=== PATIENT | male | born 1975 | race Caucasian/White ===

== ENCOUNTER 2021-03-20 09:35 | Emergency (ER) | payer OTHER ==
[~2021-03-20] VITALS: Ht 170.2 cm; Wt 83.9 kg
[2021-03-20 09:42] VITALS: BP 135/87
== END 2021-03-20 10:31 | disposition home or self-care (01) ==
LOC: ER 09:35
DX: K04.7 Periapical abscess without sinus (principal); J45.909 Unspecified asthma, uncomplicated; F17.210 Nicotine dependence, cigarettes, uncomplicated; Z76.0 Encounter for issue of repeat prescription

== ENCOUNTER 2023-09-04 00:34 | Emergency (ER) | payer OTHER ==
[~2023-09-04] VITALS: Ht 177.8 cm; Wt 58.8 kg
[2023-09-04 01:00] VITALS: PULSE 80; RESP 18; O2SAT 98
[2023-09-04 01:18] LABS: Basophils # (auto) 0.1 10 ^3/uL (0-0.2); Basophils % (auto) 1.2 % (0.0-2.0); Eosinophils # (auto) 0.1 10 ^3/uL (0-0.8); Eosinophils % (auto) 2.1 % (0.0-7.0); Hematocrit 39.4 % (41.0-53.0); Hemoglobin 13.4 g/dL (13.5-17.5); Lymphocytes # (auto) 1.7 10 ^3/uL (0.4-5.4); Lymphocytes % (auto) 24.5 % (10.0-50.0); Mean Corpuscular Hemoglobin 30.1 pg (28.0-32.0); Mean Corpuscular Hgb Conc. 34.1 g/dL (32.0-36.0); Mean Corpuscular Volume 88.3 fL (80.0-100.0); Monocytes # (auto) 0.4 10 ^3/uL (0-1.3); Monocytes % (auto) 5.2 % (0.0-12.0); Neutrophils # (auto) 4.8 10 ^3/uL (1.6-8.6); Red Blood Cells 4.46 10^6/uL (4.5-5.90); Red Cell Distribution Width 13.5 % (11.8-14.3); White Blood Cell 7.1 10^3/uL (4.4-10.8)
[2023-09-04 01:30] LABS: Acetaminophen < 2.0 UG/ML (10.0-20.0); Alanine Aminotransferase 72 U/L (7-40); Albumin 4.3 g/dL (3.2-4.8); Alkaline Phosphatase 35 U/L (46-116); Anion Gap 4 (5-15); Aspartate Aminotransferase 66 U/L (13-40); BUN/Creatinine Ratio 27.7 (10.0-20.0); Blood Alcohol < 3.0 mg/dL (<10); Blood Urea Nitrogen 23 mg/dL (9-23); Calcium 9.3 mg/dL (8.7-10.4); Carbon Dioxide 28 mmol/L (20-30); Chloride 109 mmol/L (98-107); Glucose 107 mg/dL (74-106); Potassium 3.8 mmol/L (3.5-5.1); Sodium 141 mmol/L (136-145)
[2023-09-04 01:31] LABS: Bilirubin, Total 0.5 mg/dL (0.2-1.0); Total Protein 6.5 g/dL (5.7-8.2)
[2023-09-04 01:36] LABS: Salicylate < 3.0 mg/dL (2.8-20.0)
[2023-09-04 01:56] LABS: Urine Bacteria NONE SEEN /hpf (None Seen); Urine Blood Negative /uL (Negative); Urine Clarity Clear (Clear); Urine Color Yellow (Yellow); Urine Protein, UAD TRACE (Negative); Urine WBC <1 /hpf (0 - 3)
[2023-09-04 02:01] LABS: Amphetamine Screen, Urine Neg (NEGATIVE); Barbiturate Scree,Urine Neg (NEGATIVE); Benzodiazephine Screen, Urine Neg (NEGATIVE); Cocaine Screen, Urine Neg (NEGATIVE)
[2023-09-04 02:02] LABS: Cannabinoid Screen, Urine Pos (NEGATIVE); Opiate Scree,Urine Neg (NEGATIVE); Phencyclidine Screen, Urine Neg (NEGATIVE)
[2023-09-04] MEDS: hydrOXYzine 25 MG TAB or CAP PO PRN (15:06)
[2023-09-04] MEDS ORDERED: ASPirin 81 mg TAB ONE (15:59)
[2023-09-04] MEDS ORDERED: ATORVASTATIN 20 MG TAB ONE (15:59)
[2023-09-04] MEDS: ATORVASTATIN 20 MG TAB PO SCH (16:07)
[2023-09-04] MEDS: QUEtiapine FUMARATE 25 MG TAB PO SCH (21:24)
[2023-09-04] MEDS ORDERED: ATORVASTATIN 20 MG TAB PO SCH (22:00)
[2023-09-04] MEDS ORDERED: LORazepam 0.5 MG TAB PO ONE (23:30)
[2023-09-05 07:21] VITALS: PULSE 94; RESP 18; O2SAT 95
[2023-09-05] MEDS: ASPirin-EC 81 mg tab PO SCH (10:05)
[2023-09-05] MEDS: hydrOXYzine 25 MG TAB or CAP PO PRN ×2 (10:05→17:51)
[2023-09-05] MEDS ORDERED: LORazepam 0.5 MG TAB PO ONE (10:15)
[2023-09-05] MEDS: ATORVASTATIN 20 MG TAB PO SCH (17:51)
[2023-09-05] MEDS: QUEtiapine FUMARATE 25 MG TAB PO SCH (23:20)
[2023-09-06] MEDS: ASPirin-EC 81 mg tab PO SCH (15:44)
[2023-09-06] MEDS: ATORVASTATIN 20 MG TAB PO SCH (15:44)
[2023-09-06 19:20] VITALS: RESP 16; O2SAT 98
[2023-09-06] MEDS: hydrOXYzine 25 MG TAB or CAP PO PRN (20:16)
[2023-09-06] MEDS: QUEtiapine FUMARATE 25 MG TAB PO SCH (21:43)
[2023-09-07] MEDS ORDERED: IBUPROFEN 600 MG TAB PO PRN (03:45)
[2023-09-07] MEDS ORDERED: LORazepam 2MG/ML-1ML VIAL IM ONE (03:45)
[2023-09-07 07:34] VITALS: BP 127/97; TEMP 97.9
[2023-09-07 07:35] VITALS: PULSE 67; RESP 16; O2SAT 98
[2023-09-07 09:00] VITALS: RESP 16; O2SAT 98
[2023-09-07] MEDS: ASPirin-EC 81 mg tab PO SCH (10:42)
[2023-09-07] MEDS ORDERED: hydrOXYzine 25 MG TAB or CAP PO PRN (14:00)
[2023-09-07] MEDS ORDERED: LOPERAMIDE HCL 2 MG CAP/TAB PO ONE (15:45)
[2023-09-07] MEDS: ATORVASTATIN 20 MG TAB PO SCH (18:03)
== END 2023-09-07 19:19 | disposition home or self-care (01) ==
LOC: ER 00:36
DX: F13.939 Sedative, hypnotic or anxiolytic use, unspecified with withdrawal, unspecified (principal); J45.909 Unspecified asthma, uncomplicated; F17.210 Nicotine dependence, cigarettes, uncomplicated; Z79.899 Other long term (current) drug therapy
CPT/HCPCS: 36415; 71045; 80053; 80307; 80320; 80329; 81001; 85025; 96372; 99285; J2060